=== PATIENT | male | born 1985 | race Caucasian/White ===

== ENCOUNTER 2023-07-14 20:25 | Observation (INO) ==
[2023-07-14] MEDS ORDERED: MoRPHine SULFATE 4 MG/ML 1 ML CARP\\VIAL IV PRN (20:29)
--- NOTE | 2023-07-14 20:46 | Emergency Department Note ---
Impression & Plan Injury to scrotum, Anemia ED Provider Note NAME: ROYER [id number] JORDI AGE: 38 SEX: M : 1985 ARRIVES VIA: Ambulance INFORMANT: [Patient] ED PROVIDER(S): [Wyatt Dailey MD] CHIEF COMPLAINT: Testicular pain HISTORY OF PRESENT ILLNESS: The patient is a 38-year-old male who was in this hospital 6 days ago for a scrotal laceration. He presents today by ambulance for an opening of the left scrotal wound. His left testicle is protruding out of the scrotal sac. The patient states that he was doing some squats in his cell and he believes aliens must have arrived and opened the scrotal wound. He states nobody believes him. He complains of significant pain. In route to the hospital, he was given IV Tylenol. PMHx/PSHx/Social Hx: See Below PHYSICAL EXAM: GENERAL: Patient is in moderate distress from pain. HEENT: No acute trauma, normocephalic atraumatic, mucous membranes moist, no nasal congestion. NECK: No stridor, no adenopathy, no meningismus, trachea is midline. LUNGS: Clear to auscultation bilaterally, no wheeze, no rhonchi, breath sounds equal. HEART: Without murmurs gallops or rubs, regular rate and rhythm. ABDOMEN: Soft, nontender, no peritonitis. EXTREMITIES: No cyanosis, full range of motion of all the joints without pain or difficulty. NEUROLOGIC: Oriented x 3, no acute motor or sensory deficits, no focal weakness. SKIN: No jaundice, no diaphoresis. Groin: Circumcised. His left testicle is protruding from the left side of the scrotal sac. There is minimal bleeding. DIFFERENTIAL DIAGNOSIS: Scrotal laceration, torsion, cellulitis, abscess, among others. EMERGENCY DEPARTMENT PROCEDURES: MEDICAL DECISION MAKING: There is no leukocytosis. The patient does have a mild anemia with a hemoglobin of 12.7. There is a normal platelet count. No renal failure or significant electrolyte abnormality. On exam, the patient had an open area to the left hemiscrotum with his testicle protruding. There was minimal bleeding. He complained of significant discomfort. The patient had received IV Tylenol in route. He did receive IV morphine, IV Zofran, IV saline, he was given IV Zosyn. I spoke with the patient and the senior care guards. I spoke with case management. I did consult urology. The patient is being moved to the operating room for urologic intervention. Prior/Outside records/notes reviewed: Urology note from 07/08/2023 discussing his presentation for a scrotal laceration and the care required. Imaging/x-ray results per my interpretation: Chronic Medical/Social conditions affecting care: Currently incarcerated. Care/Management discussed with: Urology-Dr. Infante Level of care consideration(s): After review of the information above and other included data: --I believe the patient requires escalation of care to admission DISPOSITION: Admission for urologic OR intervention Past Med/Surg History Problem List (Updated 07/15/23 @ 00:42 by Wyatt Dailey MD) Anemia (Acute) Injury to scrotum (Acute) Laceration of scrotum (Acute) Lab test negative for COVID-19 virus (Acute) Self-injurious behavior (Acute) Hx of exploratory laparotomy History of mandibular surgery No pertinent past medical history Medical History Psychosis Laceration of scrotum and testes Social History Smoking Status: Former smoker Preferred Language: Bahamian Feels Safe at Home: Yes Allergies Allergies Allergy/AdvReac Type Severity Reaction Status Date / Time NSAIDS (Non-Steroidal Allergy Difficulty Verified 06/20/23 13:59 Anti-Inflamma Breathing trazodone Allergy Vomiting Verified 06/20/23 14:02 Home Meds Home Medications Medication Instructions Recorded Confirmed No Known Home Medications 07/08/23 07/08/23 Results & Data (ED) Vital Signs Vital Signs - 24 hr 07/14/23 20:43 07/14/23 21:14 07/14/23 23:07 Temperature 36.9 C 35.9 C L Temperature Source Temporal Artery Scan Oral Pulse Rate 81 90 Pulse Rate [Left Finger] 79 Pulse Rhythm Regular Pulse Rhythm [Left Finger] Regular Pulse Strength [Left Finger] Normal Respiratory Rate 16 18 Respiratory Effort / Characteristics Non-Labored Spontaneous Respiratory Depth Normal Normal Respiratory Pattern Regular Blood Pressure 138/76 Blood Pressure [Left Arm] 120/85 Blood Pressure Mean 96 Blood Pressure Mean [Left Arm] 96 Blood Pressure Position [Left Arm] Lying Pulse Oximetry 98 100 Oxygen Delivery Method Room Air Nasal Cannula Oxygen Flow Rate 2 Sepsis Recent Fever Within 48 Hours No Sepsis New/Unexplained Change in Mental Status No Sepsis Action Taken by Nursing No Action Required 07/14/23 23:17 07/14/23 23:27 07/14/23 23:37 Temperature 36.0 C L 36.4 C L 36.3 C L Temperature Source Oral Oral Oral Pulse Rate Pulse Rate [Left Finger] 86 72 85 Pulse Rhythm Pulse Rhythm [Left Finger] Regular Regular Regular Pulse Strength [Left Finger] Normal Normal Normal Respiratory Rate 16 20 23 Respiratory Effort / Characteristics Non-Labored Spontaneous Non-Labored Spontaneous Non-Labored Spontaneous Respiratory Depth Normal Normal Normal Respiratory Pattern Regular Regular Regular Blood Pressure Blood Pressure [Left Arm] 109/60 104/59 L 108/68 Blood Pressure Mean Blood Pressure Mean [Left Arm] 76 74 81 Blood Pressure Position [Left Arm] Lying Lying Lying Pulse Oximetry 100 97 97 Oxygen Delivery Method Room Air Room Air Room Air Oxygen Flow Rate Sepsis Recent Fever Within 48 Hours Sepsis New/Unexplained Change in Mental Status Sepsis Action Taken by Nursing 07/14/23 23:47 07/14/23 23:57 07/15/23 00:07 Temperature 36.3 C L 36.4 C L 36.3 C L Temperature Source Oral Oral Temporal Artery Scan Pulse Rate Pulse Rate [Left Finger] 88 90 83 Pulse Rhythm Pulse Rhythm [Left Finger] Regular Regular Regular Pulse Strength [Left Finger] Normal Normal Normal Respiratory Rate 20 13 23 Respiratory Effort / Characteristics Non-Labored Spontaneous Non-Labored Spontaneous Non-Labored Spontaneous Respiratory Depth Normal Normal Normal Respiratory Pattern Regular Regular Regular Blood Pressure Blood Pressure [Left Arm] 108/64 117/68 127/80 Blood Pressure Mean Blood Pressure Mean [Left Arm] 78 84 95 Blood Pressure Position [Left Arm] Lying Lying Lying Pulse Oximetry 100 97 99 Oxygen Delivery Method Room Air Room Air Room Air Oxygen Flow Rate Sepsis Recent Fever Within 48 Hours Sepsis New/Unexplained Change in Mental Status Sepsis Action Taken by Nursing 07/15/23 00:27 Temperature 36.4 C L Temperature Source Temporal Artery Scan Pulse Rate Pulse Rate [Left Finger] 74 Pulse Rhythm Pulse Rhythm [Left Finger] Regular Pulse Strength [Left Finger] Normal Respiratory Rate 12 Respiratory Effort / Characteristics Non-Labored Spontaneous Respiratory Depth Normal Respiratory Pattern Regular Blood Pressure Blood Pressure [Left Arm] 110/81 Blood Pressure Mean Blood Pressure Mean [Left Arm] 90 Blood Pressure Position [Left Arm] Lying Pulse Oximetry 96 Oxygen Delivery Method Room Air Oxygen Flow Rate Sepsis Recent Fever Within 48 Hours Sepsis New/Unexplained Change in Mental Status Sepsis Action Taken by Prison Medications Current Medication List: was personally reviewed by me Laboratory Data Attestation: I reviewed the patient's lab results. 07/14/23 21:16 07/14/23 21:16 Lab Results 07/14/23 Range/Units 21:16 WBC 9.92 (4.8-10.8) K/ul RBC 4.04 L (4.70-6.10) M/uL Hgb 12.7 L (14.0-18.0) g/dl Hct 36.8 L (42.0-52.0) % MCV 91.1 (80.0-100.0) fL MCH 31.4 (25.0-34.0) pg MCHC 34.5 (32.0-36.0) g/dL RDW Std Deviation 41.8 (36.4-46.3) fL RDW Coeff of Hiro 12.6 (11.5-14.5) % Plt Count 349 (130-400) K/uL MPV 10.7 (9.4-12.4) fL Immature Gran % (Auto) 0.3 % Neut % (Auto) 68.0 % Lymph % (Auto) 21.7 % [place] % (Auto) 8.6 % Eos % (Auto) 0.9 % Baso % (Auto) 0.5 % Neut # (Auto) 6.75 H (1.40-6.50) K/uL Lymph # (Auto) 2.15 (1.20-3.40) K/uL [place] # (Auto) 0.85 H (0.11-0.59) K/uL Eos # (Auto) 0.09 (0.00-0.50) K/uL Baso # (Auto) 0.05 (0.00-0.20) K/uL Immature Gran # (Auto) 0.03 (0.01-0.20) K/uL Sodium 140 (136-145) mmol/L Potassium 3.8 (3.5-5.1) mmol/L Chloride 109 H (98-107) mmol/L Carbon Dioxide 25 (21-32) mmol/L Anion Gap 6 (3-11) BUN 15 (6-23) mg/dl Creatinine 1.38 (0.6-1.4) mg/dl Est Cr Clr Drug Dosing 89.8 ml/min Est GFR ( Amer) 74.6 ml/min Est GFR (Non-Af Amer) 64.4 ml/min BUN/Creatinine Ratio 10.9 (10-20) Glucose 89 (70-99(Fasting)) mg/dl Calcium 9.7 (8.6-10.3) mg/dl Administered Medications Fentanyl Citrate (Fentanyl Citrate Pf 100 Mcg/2 Ml Vial) 50 mcg IV Q5M PRN PRN Reason: PACU Use Only-Pain Stop: 07/15/23 05:58 Last Admin: 07/14/23 23:15 Dose: 50 mcg Documented By: Admin: 07/14/23 23:10 Dose: 50 mcg Documented By: AILIN Hydromorphone HCl (Hydromorphone Inj 0.5 Mg/0.5 Ml Syr) 0.5 mg IV Q5M PRN PRN Reason: PACU Use Only-Pain Stop: 07/15/23 05:58 Last Admin: 07/15/23 00:00 Dose: 0.5 mg Documented By: Admin: 07/14/23 23:21 Dose: 0.5 mg Documented By: Admin: 07/14/23 23:03 Dose: 0.5 mg Documented By: REECE Discontinued Medications Bacitracin (Bacitracin Oint 14 Gm Tube) Confirm Administered Dose 45 appln .ROUTE .STK-MED ONE Stop: 07/14/23 22:50 Last Admin: 07/14/23 22:50 Dose: 45 appln Documented By: [id number] Bupivacaine HCl (Bupivacaine 0.5 % 5 Mg/1 Ml Mpf 30ml Vial) Confirm Administered Dose 30 ml .ROUTE .STK-MED ONE Stop: 07/14/23 22:09 Last Admin: 07/14/23 22:42 Dose: 30 ml Documented By: [id number] Fentanyl Citrate (Fentanyl Citrate Pf 100 Mcg/2 Ml Vial) Confirm Administered Dose 100 mcg .ROUTE .STK-MED ONE Stop: 07/14/23 23:09 Last Admin: 07/14/23 23:40 Dose: Not Given Documented By: REECE Hydromorphone HCl (Hydromorphone Inj 0.5 Mg/0.5 Ml Syr) Confirm Administered Dose 0.5 mg .ROUTE .STK-MED ONE Stop: 07/14/23 23:04 Last Admin: 07/14/23 23:40 Dose: Not Given Documented By: REECE Hydromorphone HCl (Hydromorphone Inj 0.5 Mg/0.5 Ml Syr) Confirm Administered Dose 0.5 mg .ROUTE .STK-MED ONE Stop: 07/14/23 23:20 Last Admin: 07/14/23 23:41 Dose: Not Given Documented By: REECE Piperacillin Sod/Tazobactam Sod (Zosyn) 4.5 gm in 120 mls @ 240 mls/hr IV NOW ONE Stop: 07/14/23 20:58 Last Admin: 07/14/23 21:09 Dose: 240 mls/hr Documented By: JEANNINE Sodium Chloride (Nss) 500 mls @ 999 mls/hr IV .Q31M ONE Stop: 07/14/23 21:12 Last Admin: 07/14/23 21:09 Dose: 999 mls/hr Documented By: JEANNINE Morphine Sulfate (Morphine Sulfate 4 Mg/Ml 1 Ml Carp\Vial) 4 mg IV NOW STA Stop: 07/14/23 20:30 Last Admin: 07/14/23 21:09 Dose: 4 mg Documented By: JEANNINE Vancomycin HCl (Vancomycin Hcl 1000mg/20ml Vial) Confirm Administered Dose 50 mg .ROUTE .STK-MED ONE Stop: 07/14/23 22:20 Last Admin: 07/14/23 22:40 Dose: 50 mg Documented By: [id number] Discharge Plan Visit Data Chief Complaint: Testicular Pain Stated Complaint: TESTICLE ISSUES ED Provider: Wyatt Dailey Discharge Problem: Injury to scrotum, Anemia Patient Disposition: Admitted As Inpatient Condition: Good Discharge Instructions Interventions: ED Discharge Assessment Last Done: 07/14/23 21:46 Discharge Problem: Injury to scrotum Qualifiers: Encounter type: subsequent encounter Qualified Code(s): S39.94XD - Unspecified injury of external genitals, subsequent encounter Anemia Qualifiers: Anemia type: unspecified type Qualified Code(s): D64.9 - Anemia, unspecified
[2023-07-14] MEDS: SODIUM CHLORIDE 0.9% 500 ML IV ONE (21:09)
[2023-07-14] MEDS: PIPERACILLIN/TAZOBACTAM 4.5 GM/120 ML BAG IV ONE (21:09)
[2023-07-14] MEDS: MoRPHine SULFATE 4 MG/ML 1 ML CARP\\VIAL IV STA (21:09)
--- NOTE | 2023-07-14 21:29 | Urology Consultation ---
Date of Consultation July 14, 2023 Assessment & Plan (1) Laceration of scrotum: (2) Self-injurious behavior: Plan Patient with repeat traumatic injury to the scrotum likely self injury. Had previously had exposure and injury to the right hemiscrotum. Had repeat event on the left side which was closed by Dr. Hurley. Patient had presented with once again traumatic injury to the left side. Acutely having pain discomfort has exposure of the left testicle. He is extremely anxious having considerable issues. Continues to have persistent comments about delusional events leading up to the injury. Did extensively review with patient prior to the OR the potential for significant injury and infection with repeat episodes. Does have numerous scars on the scrotum that were noted at the first event consistent with previous self-harm behavior. Had been evaluated by psychiatry. Has been undergoing ongoing management while in the correctional facility. Patient's complicated medical and surgical history was reviewed and summarized above all recent imaging as well as lab work was reviewed and assessed. Most recent episode last week had labs which were reviewed. White count 9.46. Creatinine 1.01. Hemoglobin 14.7. Repeat lab work is currently pending. All lab work and current vitals were reviewed with pertinent values in the HPI or plan section. Blood pressure currently 138/76. Pulse at 90. Respirations 16. Temp was 36.9 oxygen saturation 98% on room air. Discussed need for urgent intervention. Extensively reviewed risk and benefits. Discussed potential concerns related to fertility and testicular function. Discussed risk of major infection and other issues if no intervention. Discussed considerable issues with wound healing and concerns for further injury and damage. Extensively reviewed risks of surgery. Discussed potential for further injury to the testicle and scrotum. Discussed risk related to infection. Discussed closure and options. Reviewed risk related to anesthesia. Discussed scrotal cord block and local anesthetic utilized. Risk benefits were extensively reviewed. Discussed need for urgent intervention. Risks and benefits discussed at length for procedure. These include bleeding, infection, injury to surrounding tissues or organs, and risks associated with anesthesia. Patient states understanding and agrees to proceed. Will sign consent and proceed with urgent/emergent intervention. Plan for left scrotal exploration, washout, and closure of scrotal wound History of Present Illness History of Present Illness New consultation for known patient with history of trauma to the scrotum. Patient with known psychiatric issues with known delusional disorder and self- harm behavior. Has previously caused traumatic injury to the scrotum with attempted removal of testicle. Patient continues to claim delusional events that lead to the traumatic injury. Had previously undergone repair and closure with repair of injury to the testicle on the right side by myself. Had subsequently been seen by another urologist in our group due to repeat episode on the contralateral side. Patient had presented to the ER with a another episode of traumatic injury to the left hemiscrotum. Presents with the testicle exposed with reinjury to the previous closed area. Patient complaining of sudden pain in to the groin testicle and scrotum going down and radiating into testicle in waves which comes and goes. Can be severe at times. Discussed and reviewed patient's personal medical, surgical, and social/psychiatric history. Due to the acute scrotum with exposure of testicle and need for urgent intervention discussed moving forward with urgent/emergent scrotal exploration and closure. Allergies Allergy/AdvReac Type Severity Reaction Status Date / Time NSAIDS (Non-Steroidal Allergy Difficulty Verified 06/20/23 13:59 Anti-Inflamma Breathing trazodone Allergy Vomiting Verified 06/20/23 14:02 Home Medications Medication Instructions Recorded Confirmed Type No Known Home Medications 07/08/23 07/08/23 History Patient History Medical History Psychosis Laceration of scrotum and testes Social History Smoking Status: Former smoker Preferred Language: Persian Feels Safe at Home: Yes Review of Systems Review of Systems: All systems reviewed & are unremarkable except as noted in HPI & below Physical Exam Physical Exam: General: Alert and oriented in no acute distress but acutely anxious. Persistent delusional comments about events leading up to injury HEENT: Normocephalic Atraumatic. Inspection normal. Cranial Nerves 2-12 Grossly intact. Nares are clear. Neck is supple. Normal inspection of face. Normal inspection of neck. Neurologic: No deficits on inspection. Baseline for motor function and sensory. Psychologic: Anxious, known delusional disorder versus malingering Respiratory: Nonlabored. No use of accessory muscles. No tachypnea or dyspnea. Cardiovascular: No tachycardia Skin: [place] and Dry. No rashes or visible lesions. Extremities: Moving without issues. No motor deficits on inspection Lymphatics: No edema Abdomen: Soft Non-distended. No rebound or guarding. : Traumatic injury to the left hemiscrotum with exposure of testicle through previously closed wound Results & Data Vital Signs (Past 12 Hours) Vital Signs Pulse 07/14/23 20:43 81 PG Care Time/CCT Total # of Minutes Spent Total Time Spent with Patient: Total time spent is greater than 50% in coordination of care (as documented) at patient's floor/unit and/or counseling patient: Coding Level of Care Code 22298 OFFICE CONSULT LVL M Diagnoses Laceration of scrotum S31.31XA Encounter type: initial encounter Self-injurious behavior Z72.89 (1) Laceration of scrotum Encounter type: initial encounter Qualified Code(s): S31.31XA - Laceration without foreign body of scrotum and testes, initial encounter
[2023-07-14] MEDS ORDERED: PROPOFOL IV EMULSION 10 MG/ML 20 ML VIAL IV ONE (21:45)
[2023-07-14] MEDS ORDERED: fentaNYL citrate PF 100 MCG/2 ML VIAL ONE (21:45)
[2023-07-14] MEDS ORDERED: LIDOCAINE 2% 2 ML VIAL/AMP(20MG/ML) INFIL ONE (21:45)
[2023-07-14 21:48] LABS: BUN Creatinine Ratio 10.9 (10-20); Calcium 9.7 mg/dl (8.6-10.3); Creatinine Clr Calc Pharmacy 89.8 ml/min; Est GFR (African American) 74.6 ml/min; Est GFR (Non-African American) 64.4 ml/min; Potassium 3.8 mmol/L (3.5-5.1)
--- NOTE | 2023-07-14 21:56 | Anesthesiology Consultation ---
Date of Service July 14, 2023 Assessment & Plan Chart Review Chart Review: Acceptable Risk for Surgery Consults Requested none ASA [id number] Proposed Anesthesia Anesthesia Type: General History Surgery Operation Date: 07/14/23 21:15 Proposed Procedures p Torsion Testicle - Mert Jones DO Height/Weight Height: 6 ft Weight: 102.4 kg Allergies Allergy/AdvReac Type Severity Reaction Status Date / Time NSAIDS (Non-Steroidal Allergy Difficulty Verified 06/20/23 13:59 Anti-Inflamma Breathing trazodone Allergy Vomiting Verified 06/20/23 14:02 Medications Home Medications Medication Instructions Recorded Confirmed Last Taken No Known Home Medications 07/08/23 07/08/23 Unknown Past Medical History Medical History Psychosis Laceration of scrotum and testes Social History Smoking Status: Former smoker Physical Exam Vital Signs Last Vital Signs Temp 36.9 C 07/14/23 21:14 Pulse 90 07/14/23 21:14 Resp 16 07/14/23 21:14 BP 138/76 07/14/23 21:14 Pulse Ox 98 07/14/23 21:14 O2 Del Method Room Air 07/14/23 21:14 Testing Laboratory Results 07/14/23 21:16
[2023-07-14] MEDS ORDERED: PROMETHAZINE HCL 6.25 MG in SODIUM CHLORIDE 0.9% 50 ML IV PRN (21:58)
[2023-07-14] MEDS ORDERED: HYDROmorphone INJ 2 MG/ML SYR/VIAL IV PRN (21:58)
[2023-07-14] MEDS ORDERED: ATROPINE SULFATE 0.1 MG/ML 10ML SYR IV PRN (21:58)
[2023-07-14] MEDS ORDERED: ONDANSETRON INJ 2 MG/ML 2 ML VIAL IV PRN (21:58)
[2023-07-14] MEDS ORDERED: ePHEDrine sulfate 50 MG/ML AMP IV PRN (21:58)
[2023-07-14 22:03] LABS: Basophils # (auto) 0.05 K/uL (0.00-0.20); Basophils % (auto) 0.5 %; Eosinophils # (auto) 0.09 K/uL (0.00-0.50); Eosinophils % (auto) 0.9 %; Hematocrit (blood only) 36.8 % (42.0-52.0); Hemoglobin 12.7 g/dl (14.0-18.0); Immature Granulocytes # (auto) 0.03 K/uL (0.01-0.20); Immature Granulocytes % (auto) 0.3 %; Lymphocytes # (auto) 2.15 K/uL (1.20-3.40); Lymphocytes % (auto) 21.7 %; Mean Corpuscular Hemoglobin 31.4 pg (25.0-34.0); Mean Corpuscular Hgb Conc 34.5 g/dL (32.0-36.0); Mean Corpuscular Volume 91.1 fL (80.0-100.0); Mean Platelet Volume 10.7 fL (9.4-12.4); Monocytes # (auto) 0.85 K/uL (0.11-0.59); Monocytes % (auto) 8.6 %; Neutrophils # (auto) 6.75 K/uL (1.40-6.50); Platelet Count 349 K/uL (130-400); RDW Coefficient of Variation 12.6 % (11.5-14.5); RDW Standard Deviation 41.8 fL (36.4-46.3); Red Blood Count 4.04 M/uL (4.70-6.10); White Blood Count 9.92 K/ul (4.8-10.8)
[2023-07-14] MEDS: VANCOMYCIN HCL 1000MG/20ML VIAL ONE (22:40)
[2023-07-14] MEDS: BUPIVACAINE 0.5 % 5 MG/1 ML MPF 30ML VIAL ONE (22:42)
[2023-07-14] MEDS: BACITRACIN OINT 14 GM TUBE ONE (22:50)
[2023-07-14] MEDS ORDERED: ONDANSETRON INJ 2 MG/ML 2 ML VIAL ONE (22:52)
[2023-07-14] MEDS: HYDROmorphone INJ 0.5 MG/0.5 ML SYR IV PRN (23:03)
[2023-07-14] MEDS: fentaNYL citrate PF 100 MCG/2 ML VIAL IV PRN (23:10)
--- NOTE | 2023-07-14 23:16 | Operative Report ---
[facility] Post Operative Report Pre & Post Diagnosis Operation Date: 07/14/23 21:15 Pre-Op Diagnosis: Laceration of Scrotum Post-Op Diagnosis: Laceration of Scrotum I identified the patient and participated in the time-out.: Yes Procedure Operation Date: 07/14/23 21:15 Actual Procedures p Left Scrotal Exploration with Washout and Closure and Repair(Left) - Mert Jones DO Surgeon Mert Jones, II, DO Ambulance Driver None Estimated Blood Loss 1 Findings Consistent with Post-Op Diagnosis Significant laceration of the left hemiscrotum with exposure of the scrotal contents on the left. Scrotal Contents on left were bulging through the wound and had to be displaced into the hemiscrotum in order to prep as well as move forward with intervention. Curved injury of the left anterior scrotum with tracking laterally along dartos/subcutaneous tissues. Edematous changes to the subcutaneous tissues. No exposure of the testicle or injury or opening of the tunica albuginea and tunica vaginalis. Closure of multiple dartos and subcutaneous layers with final length of left curved scrotal wound after closure approx 4.3 cm. Skin closure with 5 x interrupted horizontal Mattress stitches with 2-0 Nylon permanent suture. Specimens None Drains None Anesthesia Type General Complications none Disposition Disposition: Recovery Room Indications Left repeat scrotal trauma/injury with exposure and entrapment of the left scrotal contents through the wound. Patient with possible delusional disorder possible malingering with self-mutilation versus traumatic injury. Risks and benefits discussed at length. Patient was oriented to time, person, event, and place. Did have delusional comments about possible perpetrator of injury. Patient was able to give consent for urgent/emergent procedure. Description of Procedure Patient was consented and brought back to the operating room urgently/emergently due to exposure and entrapment of left scrotal contents through the wound. Patient was placed under anesthesia in the supine position. Patient was prepped and draped in the regular sterile fashion. A time out was completed. With the time out completed and the patient prepped, the wound was assessed. The scrotal content was able to be displaced back into the left hemiscrotum with gentle pressure through the scrotum wound. The patient was then reprepped with Betadine solution. The wound was fully assessed. Found to have a curved injury around multiple areas of scarring on the left hemiscrotum in the anterior position. The wound appeared to track laterally along the subcutaneous and dartos tissues without considerable injury or exposure of the spermatic cord or testicle. A antibiotic infused solution was used to irrigate the wound multiple times. A cord block was completed with additional local anesthetic. The skin edges were also anesthetized with local anesthetic. The surrounding tissue was anesthetized with the same injection. The entire wound was fully assessed. The testicle itself was not exposed and the deeper layers on top of the spermatic cord appeared to be intact with no signs of injuries directly to the surrounding tissue. There was no areas of exposure of the tunica albuginea. The spermatic cord and testicle did not appear to have any major areas of injury or concern. No signs of any concerns about possible viability or other concerns. The wound was washed a second time. The antibiotic infused solution was used to irrigate the wound copiously. After the wound was thoroughly washed out, the wound was inspected and no major areas of bleeding. The subcutaneous and deeper tissues appear to be viable without signs of any areas of significant inflammation or signs of necrosis. Did not appear that any tissue required debridement or removal. All bleeding was controlled. The scrotum was irrigated a third time utilizing copious irrigation with antibiotic vancomycin saline solution. The Dartos, deep, and subcutaneous tissues were closed with a running 4-0 vicryl suture. This was closed in multiple layers using a running stitch. The deepest portion was closed without major issue. The most superficial was then closed with the running 4-0 Vicryl suture. A 2-0 Nylon suture was then used to close the skin in a interrupted horizontal mattress fashion. 5 x horizontal mattress stitches were utilized to close the wound. The final wound was slightly curved with good reapproximation of the skin edges and no major issues or problems. The area was cleaned. A bacitracin antibiotic ointment was placed over the incision. Multiple layers of fluffed gauze was then placed over top of the wound and secured with a scrotal support device. The patient was cleaned, aroused from anesthesia, and transferred to the pacu in stable condition having tolerated the procedure well with no complications. I was present and participated in all aspects of the procedure. Patient will likely need a course of oral antibiotics. Will be able to complete local wound care at the correctional facility with washing of the area 2-3 times daily with warm soapy water. Will be able to shower. Recommend utilizing ice for pain and swelling. The 5 x horizontal mattress nylon 2-0 sutures can be removed in approximately 7 to 10 days at the correctional facility Patient had previously been evaluated by psychiatry during the first episode at our facility. Has history of self-mutilation with previous injury to the scrotum. Recommendations were for continued psychiatric support at the correctional facility as well as monitoring for repeat episodes of self-harm. Will [facility] back to [facility] I attest to the content of the Intraoperative Record and any orders documented therein. Any exceptions are noted below.
[2023-07-14] MEDS: fentaNYL citrate PF 100 MCG/2 ML VIAL ONE (23:40)
[2023-07-14] MEDS: HYDROmorphone INJ 0.5 MG/0.5 ML SYR ONE ×2 (23:40→23:41)
[2023-07-15] MEDS: HYDROmorphone INJ 0.5 MG/0.5 ML SYR ONE (00:46)
--- NOTE | 2023-07-15 00:56 | Communication Note ---
Date of Service: July 15, 2023 Patient claimed in recovery to have ingested a number of foreign bodies prior to leaving the correctional institution this evening. Prior to this he claimed to be n.p.o. since approximately [address] abdomen and pelvis was ordered and completed. Imaging was reviewed and interpreted by myself. Imaging does show what appears to be foreign body in the stomach possibly consistent with the shoe strap the patient had claimed to ingest. Patient also claimed to ingest a number of other items including a toothbrush, plastic cutlery, and metal pieces. Patient's current vitals were stable. The lab work which was pending prior to the procedure was reviewed and is also stable with white count of 9.92 and creatinine 1.38. Patient incidentally was found to have small kidney stones without signs of obstruction on CT scan. Orders for observation were placed while stat consultations to the hospitalist and gastroenterology providers were placed for evaluation. Provider to provider communication was had directly with Dr. Bran with gastroenterology and Dr. Richardson with the hospitalist team. Will hold discharge for evaluation. May require retrieval of foreign body from the stomach/GI system. Will await recommendations from consultants.
--- NOTE | 2023-07-15 01:24 | Anesthesiology Progress Note ---
Date of Service July 15, 2023 Anesthesia Post Procedure Vital Signs Vital Signs: Temp Pulse Pulse Resp BP BP Pulse Ox 07/15/23 01:17 36.0 C L 76 13 134/74 96 07/15/23 01:07 36.8 C 75 14 127/69 95 07/15/23 00:57 36.8 C 71 9 L 123/79 97 07/15/23 00:47 36.3 C L 73 9 L 132/76 96 07/15/23 00:37 36.7 C 101 H 14 107/64 98 07/15/23 00:27 36.4 C L 74 12 110/81 96 07/15/23 00:07 36.3 C L 83 23 127/80 99 07/14/23 23:57 36.4 C L 90 13 117/68 97 07/14/23 23:47 36.3 C L 88 20 108/64 100 07/14/23 23:37 36.3 C L 85 23 108/68 97 07/14/23 23:27 36.4 C L 72 20 104/59 L 97 07/14/23 23:17 36.0 C L 86 16 109/60 100 07/14/23 23:07 35.9 C L 79 18 120/85 100 07/14/23 21:14 36.9 C 90 16 138/76 98 07/14/23 20:43 81 O2 Del Method O2 Flow Rate 07/15/23 01:17 Room Air 07/15/23 01:07 Room Air 07/15/23 00:57 Room Air 07/15/23 00:47 Room Air 07/15/23 00:37 Room Air 07/15/23 00:27 Room Air 07/15/23 00:07 Room Air 07/14/23 23:57 Room Air 07/14/23 23:47 Room Air 07/14/23 23:37 Room Air 07/14/23 23:27 Room Air 07/14/23 23:17 Room Air 07/14/23 23:07 Nasal Cannula 2 07/14/23 21:14 Room Air 07/14/23 20:43 Pain Intensity Testicles: Pain Intensity: 7 Transfer of Care Handoff Completed per policy Notes Mental Status: alert / awake / arousable and participated in evaluation Patient Amnestic to Procedure: Yes Nausea / Vomiting: adequately controlled Pain: adequately controlled Airway Patency, RR, SpO2: stable & adequate BP & HR: stable & adequate Hydration State: stable & adequate Anesthetic Complications: no major complications apparent
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
[2023-07-15] MEDS ORDERED: PROPOFOL IV EMULSION 10 MG/ML 20 ML VIAL IV ONE (01:51)
[2023-07-15] MEDS ORDERED: fentaNYL citrate PF 100 MCG/2 ML VIAL ONE ×2 (01:51→02:49)
[2023-07-15] MEDS ORDERED: SUCCINYLCHOLINE CHLORIDE 20 MG/ML 10 ML VIAL IV ONE (01:51)
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
[2023-07-15] MEDS ORDERED: LIDOCAINE 2% 2 ML VIAL/AMP(20MG/ML) INFIL ONE (01:52)
[2023-07-15] MEDS ORDERED: ATROPINE SULFATE 0.1 MG/ML 10ML SYR IV PRN (02:02)
[2023-07-15] MEDS ORDERED: ePHEDrine sulfate 50 MG/ML AMP IV PRN (02:02)
[2023-07-15] MEDS ORDERED: HYDROmorphone INJ 2 MG/ML SYR/VIAL IV PRN (02:02)
--- NOTE | 2023-07-15 02:02 | Anesthesiology Consultation ---
Date of Service July 15, 2023 Assessment & Plan Chart Review Chart Review: Acceptable Risk for Surgery Consults Requested none History Surgery Operation Date: 07/14/23 21:15 Proposed Procedures p Torsion Testicle - Mert Jones DO Operation Date: 07/15/23 02:00 Proposed Procedures p EGD Foreign Body Removal - Nick Bran MD Height/Weight Height: 6 ft Weight: 102.4 kg Allergies Allergy/AdvReac Type Severity Reaction Status Date / Time NSAIDS (Non-Steroidal Allergy Difficulty Verified 06/20/23 13:59 Anti-Inflamma Breathing trazodone Allergy Vomiting Verified 06/20/23 14:02 Medications Home Medications Medication Instructions Recorded Confirmed Last Taken No Known Home Medications 07/08/23 07/08/23 Unknown Active Medications Generic Name Dose Route Start Last Admin Trade Name Freq PRN Reason Stop Dose Admin Fentanyl Citrate 50 mcg 07/14/23 21:58 07/14/23 23:15 Fentanyl Citrate Pf 100 Mcg/2 Ml Vial IV 07/15/23 05:58 50 mcg Q5M PRN Administration PACU Use Only-Pain Hydromorphone HCl 0.5 mg 07/14/23 23:22 07/15/23 00:00 Hydromorphone Inj 0.5 Mg/0.5 Ml Syr IV 07/15/23 05:58 0.5 mg Q5M PRN Administration PACU Use Only-Pain NPO Date Last Intake of Fluids: 07/14/23 Time Last Intake of Fluids: 15:00 Date Last Intake of Solids: 07/14/23 Time Last Intake of Solids: 11:30 Past Medical History Medical History Psychosis Laceration of scrotum and testes Social History Smoking Status: Former smoker Physical Exam Vital Signs Last Vital Signs Temp 36.1 C L 07/15/23 01:47 Pulse 69 07/15/23 01:47 Resp 16 07/15/23 01:47 BP 120/74 07/15/23 01:47 Pulse Ox 97 07/15/23 01:47 O2 Del Method Room Air 07/15/23 01:47 O2 Flow Rate 2 07/14/23 23:07 Testing Laboratory Results 07/14/23 21:16 07/14/23 21:16
[2023-07-15] MEDS ORDERED: ONDANSETRON INJ 2 MG/ML 2 ML VIAL IV PRN ×2 (02:17→04:23)
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
--- NOTE | 2023-07-15 03:09 | GI REPORT ---
Patient Name: Marlo Venegas Procedure Date: 07/15/2023 1:42 AM Date of : 1985 Admit Type: Outpatient Age: 38 Gender: Male Attending MD: Nick Bran MD, Procedure: Upper GI endoscopy Providers: Nick Bran MD Referring MD: Mert Jones Indications: Foreign body in the stomach Medicines: Monitored Anesthesia Care Complications: No immediate complications. Estimated blood loss: None. Estimated Blood Loss: Estimated blood loss: none. Procedure: Pre-Anesthesia Assessment: - Prior Anticoagulants: The patient has taken no anticoagulant or antiplatelet agents. - ASA Grade Assessment: III - A patient with severe systemic disease. After obtaining informed consent, the endoscope was passed under direct vision. Throughout the procedure, the patient's blood pressure, pulse, and oxygen saturations were monitored continuously. The Endoscope was introduced through the mouth, and advanced to the second part of duodenum. The upper GI endoscopy was accomplished without difficulty. The patient tolerated the procedure well. Findings: The examined esophagus was normal. 2 sporks, 3 pieces of shoe strap, sweetener packet, and some food were found in the gastric fundus and in the gastric antrum. Removal was accomplished with a rat-toothed forceps, snare, and Mag[place]on net. Estimated blood loss: none. The duodenal bulb and second portion of the duodenum were normal. No pencil was noted despite the patient's report pre-operatively. Impression: - Normal esophagus. - 2 sporks, 3 pieces of shoe strap, sweetener packet, and some food were found in the stomach. Removal was successful. - Normal duodenal bulb and second portion of the duodenum. Recommendation: - Return patient to hospital [place] for observation. - Clear liquid diet today. -supportive care -psychiatry evaluation and treatment for patient's mental health issues Nick Bran MD 07/15/2023 3:08:51 AM This report has been signed electronically. Note Initiated On: 07/15/2023 1:42 AM Number of Addenda: 0 I attest to the content of the Intraoperative Record and orders documented therein, exceptions below {[id number]}
--- NOTE | 2023-07-15 03:12 | Procedure Note ---
Procedure Note Date of Service July 15, 2023 Note GI brief procedure note egd foreign body removal findings: 2 sporks, shoe strap pieces, sweetener packet and food removed with rat tooth, snare, and ramirez net from stomach. no pencil/toothbrush seen. recs: --clear liquid diet, supportive care --psych consult and tx --rest as per primary team Nick Bran MD Gastroenterology Coding
[2023-07-15] MEDS ORDERED: traMADol HCL 50 MG TABLET PO PRN (04:23)
[2023-07-15] MEDS ORDERED: ACETAMINOPHEN 325 MG TAB PO PRN (04:23)
[2023-07-15] MEDS ORDERED: DOCUSATE SODIUM 100 MG CAP PO PRN (04:23)
[2023-07-15] MEDS: MoRPHine SULFATE 4 MG/ML 1 ML CARP\\VIAL IV STA (05:06)
[2023-07-15] MEDS: LACTATED RINGER'S 1,000 ML IV SCH (05:12)
--- NOTE | 2023-07-15 10:58 | Urology Progress Note ---
Date of Service July 15, 2023 Assessment & Plan (1) Laceration of scrotum: (2) Self-injurious behavior: Plan: 38 yo/M admitted after traumatic self inflicted injury to left scrotum as well as ingested foreign bodies Patient is POD #1 left scrotal exploration and washout and closure and repair Also underwent EGD with GI for removal of foreign bodies He is afebrile with stable vitals Surgical incision appropriate Continue local wound care as needed and scrotal support Continue medical management per hospital medicine Okay to discharge from perspective when medically stable will sign off, please contact our service with any additional questions or co ncerns Admission and Anticipated Discharge Date Admission Date: July 15, 2023 Subjective Patient seen and examined at bedside, 2 custodial guards present Patient awake and sitting up in bed Reports some mild scrotal discomfort Denies fever, chills, nausea or vomiting Review of Systems Constitutional: as per Subjective / HPI Genitourinary: + as per Subjective / HPI Physical Exam Constitutional: no acute distress Respiratory: no respiratory distress and no labored breathing Musculoskeletal: Head/Neck/Chest: normocephalic Neurologic: moves all extremities and awake Psychiatric: Orientation: alert and oriented x 3 Genitourinary: Scrotal support and gauze in place with minimal sanguinous drainage on gauze, incision C/D/I with sutures Results & Data Vital Signs (Past 12 Hours) Vital Signs Temp Pulse Resp BP Pulse Ox O2 Del Method O2 Flow Rate 07/15/23 07:01 36.6 C 62 18 109/70 98 Room Air 07/15/23 06:11 36.7 C 61 18 109/69 97 Room Air 07/15/23 05:12 36.5 C 56 L 18 106/67 96 Room Air 07/15/23 04:33 36.4 C L 84 16 119/77 97 Room Air 07/15/23 04:27 36.5 C 79 18 121/76 97 Room Air 07/15/23 03:45 36.5 C 68 15 112/71 97 Room Air 07/15/23 03:35 36 C L 68 14 124/71 98 Room Air 07/15/23 03:25 35.7 C L 61 16 111/67 100 Oxymask 2 07/15/23 03:15 36 C L 59 L 16 125/80 100 Oxymask 5 07/15/23 02:07 36.3 C L 67 18 124/70 99 Room Air 07/15/23 01:57 36.4 C L 71 16 120/64 98 Room Air 07/15/23 01:47 36.1 C L 69 16 120/74 97 Room Air 07/15/23 01:37 36.1 C L 72 14 121/81 99 Room Air 07/15/23 01:27 36.0 C L 81 19 117/78 98 Room Air 07/15/23 01:17 36.0 C L 76 13 134/74 96 Room Air 07/15/23 01:07 36.8 C 75 14 127/69 95 Room Air 07/15/23 00:57 36.8 C 71 9 L 123/79 97 Room Air 07/15/23 00:47 36.3 C L 73 9 L 132/76 96 Room Air 07/15/23 00:37 36.7 C 101 H 14 107/64 98 Room Air 07/15/23 00:27 36.4 C L 74 12 110/81 96 Room Air 07/15/23 00:07 36.3 C L 83 23 127/80 99 Room Air 07/14/23 23:57 36.4 C L 90 13 117/68 97 Room Air 07/14/23 23:47 36.3 C L 88 20 108/64 100 Room Air 07/14/23 23:37 36.3 C L 85 23 108/68 97 Room Air 07/14/23 23:27 36.4 C L 72 20 104/59 L 97 Room Air 07/14/23 23:17 36.0 C L 86 16 109/60 100 Room Air 07/14/23 23:07 35.9 C L 79 18 120/85 100 Nasal Cannula 2 PG Care Time/CCT Total # of Minutes Spent Total Time Spent with Patient: Total time spent is greater than 50% in coordination of care (as documented) at patient's floor/unit and/or counseling patient: Coding Level of Care Code 00359 SUB INP/OBS CARE 03/20MIN Diagnoses Laceration of scrotum S31.31XA Encounter type: initial encounter Self-injurious behavior Z72.89 (1) Laceration of scrotum Encounter type: initial encounter Qualified Code(s): S31.31XA - Laceration without foreign body of scrotum and testes, initial encounter
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
== END 2023-07-15 13:51 ==
LOC: ED 20:25 → OR 21:40 → 3N 21:40 → OR 21:48 → SUATTDRO 07-15 00:45